=== PATIENT | female | born 1970 | race Caucasian/White ===

== ENCOUNTER 2019-08-14 11:33 | Emergency (ER) | payer OTHER ==
[2019-08-14] MEDS ORDERED: ONDANSETRON 4 MG/2 ML VIAL ONE (11:50)
[2019-08-14 11:55] VITALS: BMI 25.0
[2019-08-14] MEDS ORDERED: SODIUM CHLORIDE 500 ML IV STA (12:27)
--- NOTE | 2019-08-14 12:32 | PDOC ---
Attending Attestation - Resident Resident Name: Sandee Preston - HPI HPI: 08/14/19 13:25 Pt presents to the ED complaining of "dizziness" that began while in passenger seat of moving car. Denies chest pain or shortness of breath. Denies vomiting , but did experience a brief episode of nausea. States that the symptoms started when she bend down and then sat up again. Denies room spinning or vertigo. Denies diarrhea or decreased PO intake. History of prior episode of vertigo that resolved after meclizine. - Physicial Exam PE: 08/14/19 13:41 Agree with resident exam. PAtient is alert and oriented x 3 and in no acute distress. Ambulatory with normal gait. EOMI. CV: rrr no m/r/g. pulm: CTA b/l / Abdomen: soft, non tender, non distended. - Medical Decision Making 08/14/19 13:43 Pt presents to the ED complaining of dizziness. Unclear from patient description whether she is vertiginous or lightheaded. However, she is ambulatory with normal gait, denies chest pain or shortness of breath and has completely normal exam. Feels at baseline after meclizine. Will discharge home with instructions to follow up with PMD.
[2019-08-14 12:51] LABS: BASO % 0.4 % (0-2.0); EOS % 0.1 % (0-4.5); HEMATOCRIT 36.1 % (32.4-45.2); HEMOGLOBIN 12.8 GM/dL (10.7-15.3); LYMPH % 9.6 % (8-40); MCH 31.5 pg (25.7-33.7); MCHC 35.4 g/dl (32.0-36.0); MEAN CELL VOLUME 89.2 fl (80-96); MEAN PLT VOLUME 8.8 fl (7.5-11.1); MONO % 4.1 % (3.8-10.2); NEUT % 85.8 % (42.8-82.8); PLATELET COUNT 212 K/MM3 (134-434); RBC 4.05 M/mm3 (3.60-5.2); RDW 12.3 % (11.6-15.6); WHITE BLOOD COUNT 10.8 K/mm3 (4.0-10.0)
--- NOTE | 2019-08-14 12:59 | PDOC ---
History of Present Illness - General Chief Complaint: Lightheaded Stated Complaint: Shortness of Breath Time Seen by Provider: 08/14/19 12:22 History Source: Patient - History of Present Illness Initial Comments: 08/14/19 12:53 49 yo F PMHx of DVTs presents to the ED for acute onset dizziness and nausea. Pt states symptoms began 1 hour prior to arrival, while sitting in the passenger seat of a car. pt states she feels dizzier when her eyes are open and when she is standing or leaning forward. the nausea began around the same time. She also describes the dizziness as a headache. She states she vomited 1x. she denies hematemesis, hematochezia, or acute blood loss. denies fevers, chills. Past History - Past Medical History Allergies/Adverse Reactions: Allergies Allergy/AdvReac Type Severity Reaction Status Date / Time No Known Allergies Allergy Verified 04/25/14 11:13 Home Medications: Ambulatory Orders Meclizine HCl 25 mg PO DAILY PRN #7 tablet 08/14/19 COPD: No Thyroid Disease: No Other medical history: vein problem on the right leg - Psycho Social/Smoking Cessation Hx Smoking History: Never smoked Have you smoked in the past 12 months: No Hx Alcohol Use: No Substance Use Type: None Hx Substance Use Treatment: No Review of Systems - Review of Systems Able to Perform ROS?: Yes Constitutional: No: Chills, Diaphoresis, Fever, Weakness, Weight Stable HEENTM: No: Blurred Vision, Double Vision, Tinnitus, Difficulty Swallowing, Mouth Swelling Respiratory: No: Shortness of Breath Cardiac (ROS): Yes: Lightheadedness. No: Chest Pain, Palpitations ABD/GI: Yes: Nausea, Vomiting. No: Abdominal Distended, Diarrhea, Rectal Bleeding, Abdominal cramping, Tarry Stools : No: Dysuria Integumentary: No: Sweating Neurological: Yes: Headache, Tingling, Dizziness Endocrine: No: Change in Weight *Physical Exam - Vital Signs Last Vital Signs Temp Pulse Resp BP Pulse Ox 98.1 F 79 18 124/84 100 08/14/19 11:35 08/14/19 11:35 08/14/19 11:35 08/14/19 11:35 08/14/19 11:35 - Physical Exam General Appearance: Yes: Nourished, Appropriately Dressed HEENT: positive: EOMI, Normal Voice, Hearing Grossly Normal. negative: Pharyngeal Erythema, Sinus Tenderness, TM Bulging, TM Dull (TM intact b/l) Neck: positive: Trachea midline. negative: Normal Thyroid (R thyroid irregularity ) Respiratory/Chest: positive: Lungs Clear, Normal Breath Sounds. negative: Accessory Muscle Use, Crackles, Wheezing Cardiovascular: positive: Regular Rhythm, Regular Rate, S1, S2. negative: JVD, Murmur ED Treatment Course - LABORATORY CBC & Chemistry Diagram: 08/14/19 12:43 08/14/19 12:43 Medical Decision Making - Medical Decision Making 08/14/19 13:02 49 yo F presenting with acute dizziness, nausea r/o cerebellar dysfxn r/o arrhythmias vertigo vs dehydration vs orthostatic -EKG reviewed, NSR -no gait abnormalities -CBC, CMP, Mg , Phos -TSH -IVF -meclizine 25 mg once 08/14/19 13:06 08/14/19 13:39 -labs reviewed. wnl. 08/14/19 13:50 -pt reports improvement of symptoms -will dc with 1 week meclizine, should f/u with PMD Discharge - Discharge Information Problems reviewed: Yes Clinical Impression/Diagnosis: Dizziness Condition: Good Disposition: HOME - Admission No - Additional Discharge Information Prescriptions: Meclizine HCl 25 mg PO DAILY PRN #7 tablet PRN Reason: Vertigo - Follow up/Referral Referrals: Shanna Owens [Primary Care Provider] - - Patient Discharge Instructions Patient Printed Discharge Instructions: DI for Dizziness-Nonvertigo Additional Instructions: You came into the hospital for dizziness and nausea. You had an EKG of your heart, some blood work which had normal findings. You got fluids and medication for the dizziness while you were here. Please continue to take your home medications as prescribed. Please follow up with your primary care physician within 1 week to monitor your improvement and your healthcare. If you have any new, worsening, or alarming symptoms please return to the ED. - Post Discharge Activity
[2019-08-14] MEDS ORDERED: MECLIZINE HCL 25 MG TABLET (FP) PO ONE (13:04)
[2019-08-14] MEDS ORDERED: MECLIZINE HCL 25 MG TABLET (FP) ONE (13:08)
[2019-08-14 13:26] LABS: ALBUMIN 3.9 g/dl (3.4-5.0); BILIRUBIN,TOTAL 0.5 mg/dL (0.2-1); BLOOD UREA NITROGEN 11.6 mg/dL (7-18); CALCIUM 8.9 mg/dL (8.5-10.1); CREATININE 0.8 mg/dL (0.55-1.3); PHOSPHOROUS 2.4 mg/dL (2.5-4.9); POTASSIUM 3.6 mmol/L (3.5-5.1); TOT PROT 7.2 g/dl (6.4-8.2)
[2019-08-14 14:11] VITALS: BP 124/68; PULSE 76; TEMP 98.5
--- NOTE | 2019-08-14 14:25 | EKG ---
Test Reason : Blood Pressure : / mmHG Vent. Rate : 068 BPM Atrial Rate : 068 BPM P-R Int : 176 ms QRS Dur : 106 ms QT Int : 436 ms P-R-T Axes : 000 082 132 degrees QTc Int : 463 ms NORMAL SINUS RHYTHM LATERAL INFARCT , AGE UNDETERMINED ABNORMAL ECG WHEN COMPARED WITH ECG OF 25-APR-2014 11:01, LATERAL INFARCT IS NOW PRESENT Confirmed by LEXIS VOGEL MD ([id number]) on 08/14/2019 2:25:10 PM Referred By: Confirmed By:LEXIS VOGEL MD
== END 2019-08-14 14:11 | disposition home or self-care (01) ==
LOC: JER 11:33
PROC: 3E0337Z Introduction of Electrolytic and Water Balance Substance into Peripheral Vein, Percutaneous Approach (ICD-10-PCS; principal; 2019-08-14)
DX: R42 Dizziness and giddiness (principal); Z86.718 Personal history of other venous thrombosis and embolism
CPT/HCPCS: 36415; 80053; 83735; 84100; 84443; 85025; 93005; 93010; 99283-25